=== PATIENT | male | born 1975 ===

== ENCOUNTER 2024-03-16 15:39 | Emergency (ER) | payer OTHER ==
[~2024-03-16] VITALS: Ht 188 cm; Wt 90.7 kg
[~2024-03-16 15:39] MED LIST: EPINEPhrine HCl 0.1 MG/ML 10ML SYR IV ONE; Phenylephrine HCl 100 MCG/ML-NS 10MLSYR (1MG/10ML) IV ONE; Sodium Bicarb 8.4% 50 mEq Syringe IV ONE
[2024-03-16] MEDS ORDERED: Pantoprazole Sodium 40 MG in NS 50 ML IV SCH (15:55)
[2024-03-16] MEDS ORDERED: Pantoprazole Sodium 40 MG Injection IV ONE (15:55)
[2024-03-16 16:16] LABS: Calcium, Ionized (POC) 1.14 mmol/L (1.10-1.46); Chloride (POC) 102 mmol/L (98-108); Creatinine (POC) 1.3 mg/dL (0.8-1.3); Glucose (ISTAT POC) 129 mg/dL (70-99); Hemoglobin (POC) 12.2 g/dL (13.5-17.5); Potassium (POC) 3.7 mmol/L (3.5-5.5); Sodium (POC) 134 mmol/L (135-148); Total CO2 (POC) 14 mmol/L (21-32)
[2024-03-16] MEDS ORDERED: CefTRIAXone Sodium 1,000 MG in NS 100 ML IV ONE (16:25)
[2024-03-16] MEDS ORDERED: Octreotide Acetate 50 MCG in NS 50 ML IV ONE (16:25)
[2024-03-16 16:35] LABS: Base Excess Venous -24.9 mmol/L; Bicarbonate Venous 6.9 mmol/L (24.0-30.0); Hematocrit 37.9 % (37.0-53.0); Mean Corpuscular HGB 35.7 pg (26.0-34.0); Mean Corpuscular HGB Conc 31.7 g/dL (31.5-36.5); Mean Corpuscular Volume 113 fL (80-100); Mean Platelet Volume 10.4 fL (9.1-12.4); NRBC ABSOLUTE 0.23 K/mm3 (0.00-0.02); NRBC Auto 0.8 /100 WBC (0.0-0.2); PCO2 Venous 68.7 mmHg (38-42); Platelet Count 245 K/mm3 (150-400); RDW Coefficient Variation 15.4 % (11.7-14.2); Red Blood Cell Count 3.36 M/mm3 (4.30-5.90); White Blood Cell Count 30.41 K/mm3 (4.00-11.30); pH Blood Venous < 6.82 (7.34-7.37)
[2024-03-16] MEDS ORDERED: NS 1,000 ML IV ONE ×3 (16:35→20:11)
[2024-03-16] MEDS ORDERED: Octreotide Acetate 500 MCG in NS 250 ML IV SCH (16:35)
[2024-03-16] MEDS ORDERED: [UNRECOGNIZED DRUG - MIXTURE] IV SCH (16:45)
[2024-03-16 16:49] LABS: International Normalized Ratio 0.97; Prothrombin Time Results 10.4 Sec (9.7-11.5)
[2024-03-16 16:51] LABS: Albumin, Blood 2.2 g/dL (3.4-5.0); Albumin/Globulin Ratio 0.8 (0.8-1.8); Bilirubin, Total 0.6 mg/dL (0.1-1.0); Bun/Creatinine Ratio 16.8 (12.0-20.0); Calcium, Blood 9.1 mg/dL (8.5-10.1); Creatinine, Blood 1.55 mg/dL (0.60-1.20); Globulin, Blood 2.9 g/dL (2.2-4.0); Potassium, Blood 4.7 mmol/L (3.5-5.5); Total Protein, Blood 5.1 g/dL (6.4-8.2)
[2024-03-16 17:00] LABS: BAND PERCENT MAN 9 % (0-8); BASOPHILS PERCENT MAN 1 % (0-2); EOSINOPHILS ABSOLUTE MAN 1.21 K/mm3 (0.00-0.68); EOSINOPHILS PERCENT MAN 4 % (0-6); LYMPHOCYTES ABSOLUTE MAN 10.64 K/mm3 (0.84-5.20); LYMPHOCYTES PERCENT MAN 35 % (21-46); METAMYELOCYTE ABSOLUTE MAN 2.43 K/mm3 (0.00-0.00); METAMYELOCYTE PERCENT MAN 8 % (0-0); MONOCYTES PERCENT MAN 1 % (4-13); MYELOCYTE PERCENT MAN 2 % (0-0); SEG NEUTROPHILS PERCENT MAN 40 % (41-73); TOTAL CELLS COUNTED 100
[2024-03-16] MEDS ORDERED: FentaNYL Citrate 50 MCG/ML 2 ML Injection IV SCH (17:10)
[2024-03-16] MEDS ORDERED: Vasopressin 20 UNITS in NS 100 ML IV SCH (17:15)
[2024-03-16] MEDS ORDERED: Piperacillin/Tazobactam Sod 4.5 GM in NS 100 ML IV ONE (17:20)
[2024-03-16] MEDS ORDERED: fentaNYL citrate 1,000 MCG in NS 80 ML IV SCH (17:35)
[2024-03-16] MEDS ORDERED: Vancomycin HCL 1,250 MG in NS 250 ML IV ONE (17:40)
[2024-03-16 18:14] LABS: U Amphetamine Screen Not Detected; U Barbituate Screen Not Detected; U Benzodiazapine Screen Not Detected; U Buprenorphine Screen Not Detected; U Cannabinoids Screen DETECTED; U Cocaine Screen Not Detected; U Methadone Screen Not Detected; U Methamphetamine Screen Not Detected; U Opiates Screen Not Detected; U Oxycodone Screen Not Detected; U Phencyclidine Screen Not Detected
[2024-03-16] MEDS ORDERED: Calcium Chloride 10% 1,000 MG in NS 50 ML IV ONE ×2 (18:30→19:50)
[2024-03-16] MEDS ORDERED: Tranexamic Acid 100 ML IV ONE (18:35)
[2024-03-16] MEDS ORDERED: CALCIUM GLUC IN NACL, ISO-OSM 50 ML IV ONE (18:40)
[2024-03-16 18:43] LABS: Calcium, Ionized (POC) 0.91 mmol/L (1.10-1.46); Chloride (POC) 87 mmol/L (98-108); Creatinine (POC) 1.6 mg/dL (0.8-1.3); Glucose (ISTAT POC) 648 mg/dL (70-99); Hemoglobin (POC) 10.5 g/dL (13.5-17.5); Potassium (POC) 5.3 mmol/L (3.5-5.5); Sodium (POC) 118 mmol/L (135-148); Total CO2 (POC) 14 mmol/L (21-32)
[2024-03-16 19:04] LABS: Base Excess Venous -25.9 mmol/L; Bicarbonate Venous 6.7 mmol/L (24.0-30.0); PCO2 Venous 68.4 mmHg (38-42); pH Blood Venous <6.80 (7.34-7.37)
[2024-03-16 19:04] LABS: Hematocrit 38.5 % (37.0-53.0); Hemoglobin 11.9 g/dL (13.5-17.5); Mean Corpuscular HGB 33.2 pg (26.0-34.0); Mean Corpuscular HGB Conc 30.9 g/dL (31.5-36.5); Mean Platelet Volume 10.2 fL (9.1-12.4); NRBC ABSOLUTE 0.31 K/mm3 (0.00-0.02); NRBC Auto 0.9 /100 WBC (0.0-0.2); Platelet Count 143 K/mm3 (150-400); RDW Coefficient Variation 18.1 % (11.7-14.2); RDW Standard Deviation 69.9 fL (35.1-46.3); Red Blood Cell Count 3.58 M/mm3 (4.30-5.90); White Blood Cell Count 33.14 K/mm3 (4.00-11.30)
[2024-03-16 19:05] LABS: Mean Corpuscular Volume 108 fL (80-100)
[2024-03-16 19:23] LABS: BAND PERCENT MAN 11 % (0-8); BASOPHILS ABSOLUTE MAN 0.33 K/mm3 (0.00-0.23); BASOPHILS PERCENT MAN 1 % (0-2); EOSINOPHILS ABSOLUTE MAN 0.66 K/mm3 (0.00-0.68); EOSINOPHILS PERCENT MAN 2 % (0-6); LYMPHOCYTES ABSOLUTE MAN 8.61 K/mm3 (0.84-5.20); LYMPHOCYTES PERCENT MAN 26 % (21-46); METAMYELOCYTE ABSOLUTE MAN 3.31 K/mm3 (0.00-0.00); METAMYELOCYTE PERCENT MAN 10 % (0-0); MONOCYTES ABSOLUTE MAN 1.65 K/mm3 (0.16-1.47); MONOCYTES PERCENT MAN 5 % (4-13); MYELOCYTE ABSOLUTE MAN 0.99 K/mm3 (0.00-0.00); MYELOCYTE PERCENT MAN 3 % (0-0); NEUTROPHILS ABSOLUTE MAN 17.56 K/mm3 (1.96-9.15); SEG NEUTROPHILS PERCENT MAN 42 % (41-73); TOTAL CELLS COUNTED 100
[2024-03-16 19:36] LABS: Bun/Creatinine Ratio 16.6 (12.0-20.0); Calcium, Blood 7.8 mg/dL (8.5-10.1); Creatinine, Blood 1.57 mg/dL (0.60-1.20)
[2024-03-16] MEDS ORDERED: Insulin Regular 100 Unit/ML 1ML Dose IV ONE (19:40)
[2024-03-16] MEDS ORDERED: Furosemide 10 MG/ML 4ML Vial IV ONE (19:40)
[2024-03-16] MEDS ORDERED: Albuterol 2.5 MG/3 ML VIAL INH SCH (19:40)
[2024-03-16] MEDS ORDERED: Sodium Bicarb 8.4% 1 MEQ/ML 50 ML Vial IV ONE ×3 (19:40→21:25)
[2024-03-16] MEDS ORDERED: Calcium Chloride 10% 100 MG/ML 10ML Vial IV SCH (19:40)
[2024-03-16 19:46] LABS: Potassium, Blood 7.4 mmol/L (3.5-5.5)
[2024-03-16] MEDS ORDERED: Dextrose 50% 50 ML Syringe IV ONE (19:50)
[2024-03-16] MEDS ORDERED: Dextrose 50% 50 ML Vial IV ONE (20:05)
[2024-03-16] MEDS ORDERED: Sodium Bicarb 8.4% Inj 100 MEQ in Sodium Chloride 0.45% 1,000 ML IV SCH (20:10)
[2024-03-16 20:43] LABS: PCO2 Arterial 53.4 mmHg (35-45); PO2 Arterial 253 mmHg (80-100); pH Blood Arterial <6.80 (7.35-7.45)
[2024-03-16 20:43] LABS: Magnesium, Blood 3.8 mg/dL (1.6-2.4)
[2024-03-16 20:57] LABS: Bun/Creatinine Ratio 15.8 (12.0-20.0); Creatinine, Blood 1.58 mg/dL (0.60-1.20)
[2024-03-16 20:58] LABS: Calcium, Blood 15.8 mg/dL (8.5-10.1); Potassium, Blood 4.9 mmol/L (3.5-5.5)
[2024-03-16] MEDS ORDERED: Sodium Bicarb 8.4% 1 MEQ/ML 50 ML Vial ONE ×4 (21:02→21:54)
[2024-03-16] MEDS ORDERED: FentaNYL Citrate 50 MCG/ML 2 ML Injection ONE (21:41)
[2024-03-16 21:47] LABS: PCO2 Arterial 79.7 mmHg (35-45); PO2 Arterial 77.9 mmHg (80-100); pH Blood Arterial 7.09 (7.35-7.45)
[2024-03-16] MEDS ORDERED: Phenylephrine HCl in 0.9% NaCl 250 ML IV SCH (21:50)
[2024-03-16 22:26] LABS: Hematocrit 22.8 % (37.0-53.0); Hemoglobin 7.4 g/dL (13.5-17.5); Mean Corpuscular HGB 33.5 pg (26.0-34.0); Mean Corpuscular HGB Conc 32.5 g/dL (31.5-36.5); Mean Platelet Volume 10.7 fL (9.1-12.4); NRBC Auto 2.5 /100 WBC (0.0-0.2); Platelet Count 65 K/mm3 (150-400); RDW Coefficient Variation 17.4 % (11.7-14.2); RDW Standard Deviation 63.2 fL (35.1-46.3); Red Blood Cell Count 2.21 M/mm3 (4.30-5.90); White Blood Cell Count 24.45 K/mm3 (4.00-11.30)
[2024-03-16 22:42] LABS: Mean Corpuscular Volume 103 fL (80-100)
[2024-03-16 23:15] LABS: BAND PERCENT MAN 11 % (0-8); BASOPHILS PERCENT MAN 0 % (0-2); EOSINOPHILS ABSOLUTE MAN 0.24 K/mm3 (0.00-0.68); EOSINOPHILS PERCENT MAN 1 % (0-6); LYMPHOCYTES ABSOLUTE MAN 7.09 K/mm3 (0.84-5.20); LYMPHOCYTES PERCENT MAN 29 % (21-46); METAMYELOCYTE ABSOLUTE MAN 1.46 K/mm3 (0.00-0.00); METAMYELOCYTE PERCENT MAN 6 % (0-0); MONOCYTES ABSOLUTE MAN 0.24 K/mm3 (0.16-1.47); MONOCYTES PERCENT MAN 1 % (4-13); MYELOCYTE ABSOLUTE MAN 1.22 K/mm3 (0.00-0.00); MYELOCYTE PERCENT MAN 5 % (0-0); NEUTROPHILS ABSOLUTE MAN 14.18 K/mm3 (1.96-9.15); SEG NEUTROPHILS PERCENT MAN 47 % (41-73); TOTAL CELLS COUNTED 100
[2024-03-16 23:45] LABS: Prothrombin Time Results 28.6 Sec (9.7-11.5)
[2024-03-16 23:51] LABS: International Normalized Ratio 3.23
[2024-03-17 00:15] LABS: Fibrinogen <50 mg/dL (170-430)
[2024-03-17] MEDS ORDERED: CefTRIAXone Sodium 2,000 MG in NS 100 ML IV SCH (09:00)
== END 2024-03-17 00:27 ==
LOC: ER 15:39 → EDBD 15:39 → ER 03-17 00:27
PROVIDERS: Emergency Medicine
DX: I86.4 Gastric varices (principal); R57.8 Other shock; I46.8 Cardiac arrest due to other underlying condition; E66.01 Morbid (severe) obesity due to excess calories
CPT/HCPCS: 31500; 36430; 36556; 36625; 51702; 71045; 74018; 74174; 80047; 80048; 80053; 80320; 82803; 82947; 83605; 83735; 85014; 85018; 85025; 85384; 85610; 85730; 86850; 86900; 86901; 86923; 92950; 93005; 93010; 94002; 94644; 94664; 96365-59; 96366-59; 96368; 96375-59; 96376-59; 99291-25; 99292; C1751; J0171; J0612; J1815; J2354; J2371; J2470; J2543; J3010; J3370; J7030; J7042; J7050; J7060; J7799; P9012; P9016; P9059; Q9967